=== PATIENT | male | born 1965 | race Two or more races ===

== ENCOUNTER → 2023-09-01 | Emergency (ER) | payer BC ==
[~2023-09-01] VITALS: Ht 175.3 cm; Wt 116.6 kg
[~2023-09-01] MED LIST: HYDROCHLOROTH12.5 MG PO; TESTIM5 GM
== END | disposition home or self-care (01) ==
LOC: ER 09:09
DX: J32.9 Chronic sinusitis, unspecified (principal); Z88.0 Allergy status to penicillin; Z88.2 Allergy status to sulfonamides